=== PATIENT | female | born 1980 | race Caucasian/White ===

== ENCOUNTER 2023-02-05 08:21 | Outpatient (CLI) | payer BC, SELFPAY | END 2023-02-05 08:22 | disposition home or self-care (01) | PROVIDERS: PCP Physician Assistant Medical; Referring Provider Physician Assistant Medical; Visit Provider Physician Assistant Medical | DX: E78.1 Pure hyperglyceridemia (principal); I10 Essential (primary) hypertension; R73.03 Prediabetes; R73.9 Hyperglycemia, unspecified; E11.65 Type 2 diabetes mellitus with hyperglycemia | CPT/HCPCS: 80053; 80061; 84443 ==

== ENCOUNTER 2024-03-02 09:00 | Outpatient (CLI) | payer BC, SELFPAY ==
--- OUTSIDE RECORDS SUMMARY | 2024-03-03 08:30 | XMS_ITS | Referral Summary ---
Author Organization [facility] Address [address] [place] [address]. [place] [address] Care Team Providers Care Petroleum Inspector Supervisor Name Role Phone Karen Armendariz PA-C Primary Care Provider [phone] Allergies No known active allergies Medications Medication Sig Dispensed Refills Start Date End Date Status Vit-Fe Fumarate-FA ( MULTIVITAMIN PLUS IRON) 27-0.8 MG TABSIndications:Pregna ncy Take 1 tablet by mouth daily. Indications: Active loratadine (CLARITIN) 10 MG tablet Take 10 mg by mouth as needed. Active Active Problems Problem Noted Date Diagnosed Date Encounter for supervision of normal in multigravida 02/08/2013 Overview: Diagnosis updated by automated process. Provider to review and confirm. Social History Tobacco Use Types Packs/Day Years Used Date Smoking Tobacco: Never Alcohol Use Standard Drinks/Week Comments No 0 (1 standard drink = 0.6 oz pur e alcohol) Adolescent Education Answer Date Record ed Getting School Help Needed Not on file 02/08 Sex and Gender Information Value Date Recorded Sex Assigned at Female 01/17/2020 3:43 PM CDT Gender Identity Female 01/17/2020 3:43 PM CDT Sexual Orientation Straight 01/17/2020 3: 43 PM CDT Last Filed Vital Signs Vital Sign Reading Time Taken Comments Blood Pressure 132/71 02/10/2013 8:37 AM CDT Pulse 86 02/10/2013 8:37 AM CDT Temperature 36.8 ??C (98.3 ??F) 02/10/2013 8:37 AM CD T Respiratory Rate 18 02/10/2013 8:37 AM CDT Oxygen Saturation - - Inhaled Oxygen Concentration - - Weight 97.5 kg (215 lb) 02/08/2013 8:02 AM CDT Height 162.6 cm (5' 4) 02/08/2013 8:02 AM CDT Body Mass Index 36.9 02/08/2013 8:02 AM CDT Plan of Treatment Not on file Care Teams Petroleum Inspector Supervisor Relationship Specialty Start Date End Date Karen Armendariz PA-C [facility] [address] [facility] [address] PCP - General 09/13/19
== END 2024-03-02 09:01 | disposition home or self-care (01) ==
LOC: NFLDREF 03-03 08:28
PROVIDERS: PCP Physician Assistant Medical; Referring Provider Physician Assistant Medical; Visit Provider Physician Assistant Medical
DX: Z00.00 Encounter for general adult medical examination without abnormal findings (principal); R73.03 Prediabetes; I10 Essential (primary) hypertension; E11.9 Type 2 diabetes mellitus without complications; E78.1 Pure hyperglyceridemia
CPT/HCPCS: 80048; 80061

== ENCOUNTER 2024-03-19 13:58 | Outpatient (CLI) | payer BC, SELFPAY ==
--- OUTSIDE RECORDS SUMMARY | 2024-03-21 05:58 | XMS_ITS | Clinical Summary ---
Author Organization [facility] Address [address] [place] [address]. [place] [address] Care Team Providers Care Interactive Media Marketing Specialist Name Role Phone Karen Armendariz PA-C Primary Care Provider [phone] Allergies No known active allergies Medications Medication [...] of Treatment Not on file Care Teams Interactive Media Marketing Specialist Relationship Specialty Start Date End Date Karen Armendariz PA-C [facility] [address] [facility] [place] [address] PCP - General 09/13/19
--- OUTSIDE RECORDS SUMMARY | 2024-03-21 05:58 | XMS_ITS | Referral Summary ---
Author Organization [facility] Address [address] [place] [address]. [place] [address] Care Team Providers Care Workforce Management Coordinator Name Role Phone Karen Armendariz PA-C Primary Care Provider [phone] Allergies No known active allergies Medications Medication [...] of Treatment Not on file Care Teams Workforce Management Coordinator Relationship Specialty Start Date End Date Karen Armendariz PA-C [facility] [address] [place] [address] PCP - General 09/13/19
--- OUTSIDE RECORDS SUMMARY | 2024-03-21 05:58 | XMS_ITS | Data Portability ---
Author Organization [facility]Y - [employer], [id number] Address [address] [place] [address] Assessment Encounter Date Assessment Date Assessment LastModified by Organization Details LastModified Time 05/18/2021 05/18/2021 I spent a total of 25 minutes providing care for this patient including: preparing to see the patient, obtaining a medical history, completing documentation of visit information and plans in the EMR, counseling the patient and/or caregiver regarding her diagnosis, treatment options and follow up plans [email or web address] Not available 05/22/2021 10:28:25 Plan of Treatment Reminders Order Date Submit Date Provider Last Modified By Organization Details Last Modified Time Details Appointments None recorded. Lab hemoglobin (Hb), fingerstick , blood 2020 021 [email or web address] [facility] , [address] [place] [address], [address], [place], [address], 1 12:52:14 Pap test, slide(s), cervical [address] [facility], [address] [place] [address], [address], [place], [address], 3 07:31:32 Referral None recorded. Procedures None recorded. Surgeries None recorded. Imaging None recorded. Medication Orders Altavera (28) 0.15 mg-0.03 mg tablet 2020 021 ameschshantal [facility] [id number] [employer], [address] [place], [address], 1 10:19:44 Lidia 0.35 mg tablet 2020 021 [facility] [address] [facility] [employer], [address] [place], [address], 1 10:20:08 norethindro ne (contracept misha) 0.35 mg tablet [address] [facility], [address] [place], [place], [id number], 2 11:41:45 Lidia 0.35 mg tablet 2022 023 [id number], [address], [place], [address], 3 11:39:40 Patient TargetsNo targets recorded. Patient Instructions Encounter Date Encounter Id Patient Instructions Last Modified By Organization Details Last Modified Time 01/31/2021 [id number] - Encouraged breast self-awareness and monthly breast exams. - Recommend mammogram annually starting at age 40. - Encouraged regular exercise. - Discussed calcium, vitamin D, and weight bearing exercise for bone health. - Recommend colonoscopy starting at age 45. - Encouraged patient to establish care with a PCP to manage non-HEAD FILTER PRESS TENDER concerns if she does not already have one. - Reviewed current cervical cancer screening guidelines. - Discussed common perimenopausal changes including vaginal dryness, hot flashes, night sweats, mood changes, and weight changes. Discussed when treatment is needed. - Counseling on use of estrogen containing contraceptives provided, including the 08/999 risk of DVT or stroke. This may be higher in smokers. - Counseling on IUDs provided. - Counseling on different control methods provided. [email or web address] Not available 01/31/2021 14:06:14 04/12/2022 [id number] - Encouraged breast self-awareness and monthly breast exams. - Recommend mammogram annually starting at age 40. - Encouraged regular exercise. - Discussed calcium, vitamin D, and weight bearing exercise for bone health. - Recommend colonoscopy starting at age 45. - PCP to manage non-HEAD FILTER PRESS TENDER concerns - Reviewed current cervical cancer screening guidelines. - Discussed common perimenopausal changes including vaginal dryness, hot flashes, night sweats, mood changes, and weight changes. Discussed when treatment is needed. [email or web address] Not available 04/12/2022 12:41:27 07/08/2023 [id number] - Encouraged breast self-awareness and recommend yearly mammogram. - Discussed appropriate breast cancer screening and mammogram intervals. - Counseled on perimenopause signs/symptoms. - Encouraged weight loss-action plan. -follow up in 1 year, sooner as needed [email or web address] Not available 07/08/2023 12:02:25 Reason for Referral None Reported. Results Created Date Observation Date Name Description Value Unit Range Abnormal Flag LastModifiedBy Organization Detail LastModifiedTime 01/31/2021 hemog lobin (Hb), finge rstic k, blood fingerstick hemoglobin 12.2 g/dL 12.0-1 5.0 Not Available [id number] [facility] [address] [facility] [address], [place], [address], 01/31/2021 10:58:32 07/08/20 23 07/08/2023 HPV HIGH RISK TYPES DNA CERVI ANUPAM other HR HPV Negati ve negati ve Not Available [address], [place], [address], 07/14/2023 07:31:22 07/08/20 23 07/08/2023 HPV HIGH RISK TYPES DNA CERVI ANUPAM HPV16 DNA Negati ve negati ve Not Available [address], [place], [address], 07/14/2023 07:31:22 07/08/20 23 07/08/2023 HPV HIGH RISK TYPES DNA CERVI ANUPAM HPV18 DNA Negati ve negati ve Not Available [address], [place], [address], 07/14/2023 07:31:22 07/08/20 23 07/08/2023 HPV HIGH RISK TYPES DNA CERVI ANUPAM final diagnosis See note below Not Available [address], [place], [address], 07/14/2023 07:31:22 07/08/20 23 07/08/2023 GYNEC OLOGI C CYTOL OGY (PAP SMEAR ) gynecologic cytology SEE RESULT S BELOW Not Available [facility] [address] [facility] [address], [place], [address], 07/14/2023 07:31:32 04/24/20 22 12/05/2020 MAMMO , scree venkat, tomos ynthe sis, bilat eral, w/ CAD No observ ation record ed. [email or web address] [place] [address] Radiology Department [address] [place], [address], 04/25/2022 09:47:14 04/26/20 22 04/26/2022 MAMMO , scree venkat, tomos ynthe sis, bilat eral No observ ation record ed. [facility] [address] [address], [place], [address], 04/26/2022 14:15:37 04/26/2004/26/2022 lay lette r No observ ation record ed. [facility] [address], [place], [address], 04/28/2022 20:29:25 07/09/20 23 07/09/2023 lay lette r No observ ation record ed. [facility], [place], [address], 07/09/2023 17:36:35 07/09/20 23 07/09/2023 MAMMO , scree venkat, tomos ynthe sis, bilat eral No observ ation record ed. [facility] Center[facility]q997_uhwnxeb[address] [place], [address], 07/09/2023 14:32:57 Result Notes None recorded. Problems No Known Problems Procedures Surgical History Date Name Laterality Status Provider Name and Address Organization Details Recorded Time 07/08/20 Date of Last Pap Smear completed Nell teran [place] - [facility] [employer] 07/14/2023 17:18:38 07/08/20 Date of Last Mammogram completed JUDY De Jesus - [employer] 07/09/2023 14:33:16 Insert intrauterine device completed Not Available [facility] 03/13/2020 01:04:40 Remove intrauterine device completed Not Available [facility] 03/13/2020 01:04:40 Imaging Results Imaging Date Name Status LastModified by Organiz ation Details LastModified Time 12/05/2020 MAMMO, screening, tomosynthesis, bilateral, w/ CAD completed [address] Radiology Department [address] [place], [address], 04/25/2022 09:47:14 04/26/2022 MAMMO, screening, tomosynthesis, bilateral completed [email or web address] [id number][address] [address], [place], [address], 04/26/2022 14:15:37 04/26/2022 lay letter completed [facility] [id number] e_b [address] [address], [place], [address], 04/28/2022 20:29:25 07/09/2023 lay letter completed [facility] [id number] e_b [address] [address], [place], [address], 07/09/2023 17:36:35 07/09/2023 MAMMO, screening, tomosynthesis, bilateral completed [email or web address] [id number]_k [address], [place], [address], 07/09/2023 14:32:57 Procedure Notes None recorded. Medical Equipment None Reported. Allergies No known drug allergies Medications Name Sig Start Date Stop Date Status Note LastModified by Organization Details LastModified Time losartan 50 mg tablet TAKE 1 TABLET BY MOUTH DAILY active Not Available Not Available No t Available lisinopril 5 mg tablet TAKE 1 TABLET BY MOUTH DAILY 04/12 completed Not Available Not Available Not Available fenofibrate nanocrystalli zed 145 mg tablet TAKE 1 TABLET BY MOUTH EVERY DAY active Not Available Not Available No t Available Marjorie 0.35 mg tablet Take 1 tablet every day by oral route. active Not Available Not Available No t Available Altavera (28) 0.15 mg-0.03 mg tablet TAKE 1 TABLET BY MOUTH EVERY DAY 05/22 completed Not Available Not Available Not Available Vitals Date Recorded Body height Body mass index (BMI) Body weight Systolic blood pressure Diastolic blood pressure Systolic blood pressure Diastolic blood pressure Provider Name and Address Organization Details Last Updated DateTime 1 162.56 cm 38.3 kg/m2 910986. 1 g 148 mm[Hg] 92 mm[Hg] 150 mm[Hg] 92 mm[Hg] Federica Alvarado (TERMED) [facility] [employer] 1 09:48:43 Date Recorded Body height Body mass index (BMI) Body weight Systolic blood pressure Diastolic blood pressure Provider Name and Address Organization Details Last Updated DateTime 04/12/2022 162.56 cm 38.5 kg/m2 364546.4 1 g 126 mm[Hg] 74 mm[Hg] Jazmin Bolden (TERMED) [facility] [employer] 2 11:29:28 Date Recorded Body weight Body mass index (BMI) Body height Systolic blood pressure Diastolic blood pressure Systolic blood pressure Diastolic blood pressure Provider Name and Address Organization Details Last Updated DateTime 3 343080. 02 g 40 kg/m2 162.56 cm 160 mm[Hg] 90 mm[Hg] 170 mm[Hg] 90 mm[Hg] An Moses [facility] [employer] 3 11:27:00 Date Recorded Body weight Body mass index (BMI) Body height Systolic blood pressure Diastolic blood pressure Provider Name and Address Organization Details Last Updated DateTime 01/31/2021 95073.95 g 37.1 kg/m2 162.56 cm 116 mm[Hg] 62 mm[Hg] Jessica Mcclain (TERMED) JUDY Slaughter [employer] 10:56:31 Social History Question Answer Notes LastModified by BIXI Details LastModified Time Tobacco Smoking Status Never Smoker Tobacco *Status: Never *Note: 06/23/2019 - Not Available [facility] 03/13/2020 13:21:47 What Is Your Level Of Alcohol Consumption? Occasional Alcohol *Status: Current Some Day *Qty: 2dr/mo *Note: Information not available 03/13/2020 What Is Your Level Of Caffeine Consumption? 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 Heavy Heavy Amount of Exercise (4 or more times weekly) Information not available 03/13/2020 Mental Status None recorded. Family History Relationship Description Onset Age of this Age Resolved Age Notes Father Family history of malignant neoplasm of gastrointestinal tract Cancer Colon Father Hyperlipidemia High Cholesterol / Hyperlipidemia Brother Hyperlipidemia High Cholesterol / Hyperlipidemia Medical History Condition Response Cardiology- High Cholesterol N Cardiology- High Blood Pressure N ID-Other N Gynecological History Statement/Question Response History of Abnormal PAP N HPV Test Negative Date of Last Mammogram 07/08/2023 Date of LMP 03/21/2022 History of Cervical Dysplasia N 4 Date of Last Diabetes Screening Sexually Active Y 23 History of Sexually Transmitted Infectio n N HPV Vaccine Complete Diethylstilbestrol (MINERVA) exp osed daughters of women who took MINERVA during ? N Current Control Method Vasectomy Date of Last Pap Smear 07/08/2023 Date of Last Cholesterol Screening Obstetrics History GPAL:G 6 P 4 0 2 4 Type Value Multiple Births 0 Full Term 4 Induced 0 Spontaneous 2 Premature 0 Living 4 Ectopics 0 Total 6 Immunizations Vaccine Type Date Status Provider Name and Address Organization Details Recorded Time Tdap 11/18/2012 completed Not Available [facility] 01:09:57 unknown 08/08/2009 completed An Leidner null, [place] - [facility] [employer] 07/08/2023 11:23:19 unknown 04/18/2010 completed [place] Le[place] [facility] [employer] 07/08/2023 11:23:19 unknown 04/18/2010 completed [place] [facility] [employer] 07/08/2023 11:23:19 Influenza, MDCK, quadrivalent, PF 05/01/2017 completed [place] [facility] [employer] 07/08/2023 11:23:19 Influenza, MDCK, quadrivalent, PF 05/30/2020 completed [place] [facility] [employer] 07/08/2023 11:23:19 Influenza, MDCK, quadrivalent, PF 06/08/2019 completed [place] [facility] [employer] 07/08/2023 11:23:19 Influenza, MDCK, quadrivalent, PF 07/10/2021 completed [place] [facility] [employer] 07/08/2023 11:23:19 MMR 02/02/1991 completed An [place] [facility] [employer] 07/08/2023 11:23:19 COVID-19, mRNA, LNP-S, PF, 30 mcg/0.3 mL dose 11/10/2020 completed [place] [facility] [employer] 07/08/2023 11:23:19 COVID-19, mRNA, LNP-S, PF, 30 mcg/0.3 mL dose 12/01/2020 completed [place] [facility] [employer] 07/08/2023 11:23:19 COVID-19, mRNA, LNP-S, PF, 30 mcg/0.3 mL dose 07/31/2021 completed [place] [facility] [employer] 07/08/2023 11:23:19 influenza, unspecified formulation 07/31/2005 completed [place] [facility] [employer] 07/08/2023 11:23:19 Tdap 03/31/2006 completed [place] [facility] [employer] 07/08/2023 11:23:19 Novel [id number], all formulations 08/08/2009 completed [place] [facility] [employer] 07/08/2023 11:23:19 DTP 12/04/1995 completed [place] [facility] [employer] [employer] 07/08/2023 11:23:19 DTP 03/04/1984 completed [place] [facility] [employer] 07/08/2023 11:23:19 OPV 1978 completed [place] [facility] [employer] 07/08/2023 11:23:19 polio, unspecified formulation 1978 completed [place] [facility] [employer] [employer] 07/08/2023 11:23:19 Hep B, adult 10/01/1999 completed [place] [facility] [employer] 07/08/2023 11:23:19 Hep B, adult 03/29/1999 completed [place] [facility] [employer] 07/08/2023 11:23:19 Hep B, adult 06/12/1999 completed [place] [facility] [employer] [employer] 07/08/2023 11:23:19 Hep A, adult 03/31/2006 completed [place] [facility] [employer] [employer] 07/08/2023 11:23:19 Past Encounters Encounter ID Performer Location Encounter Start Date Encounter Closed Date Diagnosis/Indication Diagnosis SNOMED-CT Code [id number] ANIRUDH GILES, GIRISH [id number] [facility] [address] [facility] [address], [address] [place] [address] 01/31/2021 10:47:01 01/31/2021 14:17:23 Gynecologic examination 91968964 Obesity 276152845 Contracept ion care management 251042353 Essential hypertension 21206798 [id number] BRENDAN FELIZ MD [id number] [facility] [address] [facility], [address] [place] [address] 05/18/2021 09:37:00 05/22/2021 13:09:51 Contraception care management [id number] DEVAN GARCIA [facility] [id number] [facility] [address] [facility], [address] [place] [address] 04/12/2022 11:15:44 04/12/2022 13:29:40 Gynecologic examination [id number] DEVAN GARCIA CARY [id number] [facility] [address] [facility], [address] [address] 07/08/2023 11:18:38 07/08/2023 12:02:55 Contraception care management 935899436 Gynecologi c examination 06089006 Increased blood pressure 29583051 Increased body mass index 46031128 Health Concerns Section Related Observation LastModified by Organization Detai ls LastModified Time None Recorded Concern Status LastModified by Organization Details LastModified Time None Recorded Advance Directives Directive None Recorded Payers Encounter Date Sequence Insurance Name Policy Number Policy Harris Covered Member ID Harris Member ID Guarantor Name 01/31/2021 1 [employer] (PPO) [id number] Jose Gomez [id number] Aida Gomez 05/18/2021 1 [employer] (PPO) [id number] Jsoe Gomez [id number] Aida Gomez 04/12/2022 1 [place] [id number] Jose Gomez [id number] Aida Gomez 07/08/2023 1 [place] [id number] Jose Gomez [id number] Aida Gomez Notes Date Note Type Note Provider Name and Address Organization Details Recorded Time 01/31/2021 text/html HPI Notes: Lacy latham Premenopausal ([facility]) Reported by patient. Patient Relationship To Practice: established patient Current Medical History: active medical problems stable Relevant Family History: no family history of breast cancer; no family history of ovarian cancer; no family history of uterine cancer; no family history of colon cancer; no family history of blood clots/DVT Menstrual History: Frequency of Menses: monthly; Duration of Flow: 5 days; Quantity of Flow: moderate Contraceptive Method: Current Method Used: vasectomy; satisfied; uses OCP for cycle control Sexually Active: Yes: spouse STI Screen: declines Health/Prevention: Exercise: no; Multivitamins: yes; Adequate Calcium Intake: no; Breast Self Exam: yes; Mental Health Screen: normal Mammogram: up-to-date; December 2020 Pap Smear +/- HPV Cotesting: up-to-date; June 2019 Thyroid/Lipid Screening: up-to-date; does w/ PCP Colonoscopy: not applicable Patient has: Primary Care Physician: yes Aida reports use of OCPs for cycle control, has had vasectomy. Is on lisinopril 5mg for blood pressure management. GIRISH VELASQUEZ [id number], [place], [address], [facility] - [facility] [employer] 01/31/2021 14:10:23 05/18/2021 text/html HPI Notes: Chasidy skelton presents today to discuss period control. She has been on OCPs for control of her heavy periods ( has had vasectomy). She was recently recommended to stop OCPs due to HTN. Discussed risks of OCPs with HTN - as well as BP today of 150/92. Patient reports her BP is usually better [place] [address] [address], [place], [address], [facility] [employer] 05/22/2021 10:31:07 04/12/2022 text/html HPI Notes: Lacy latham Premenopausal ([facility]) Reported by patient. Patient Relationship To Practice: established patient Current Medical History: active medical problems stable Relevant Family History: no family history of breast cancer; no family history of ovarian cancer; no family history of uterine cancer; no family history of colon cancer; no family history of blood clots/DVT Menstrual History: Frequency of Menses: monthly; Duration of Flow: 5 days; Quantity of Flow: moderate Contraceptive Method: satisfied: vasectomy; uses POPs for cycle control Sexually Active: Yes: spouse STI Screen: declines Health/Prevention: Exercise: no; Multivitamins: yes; Adequate Calcium Intake: no; Breast Self Exam: yes; Mental Health Screen: normal Mammogram: up-to-date; will do today in the office Pap Smear +/- HPV Cotesting: up-to-date; June 2019 Thyroid/Lipid Screening: up-to-date; does w/ PCP Colonoscopy: not applicable Patient has: Primary Care Physician: yes Notes: Kids are doing well, one in high school, 2 in middle school and one in elementary. DUONG COLON [address] [facility], [place], [address], [facility] [employer] 04/12/2022 12:41:42 07/08/2023 text/html HPI Notes: Lacy Michael () Reported by patient. Patient Relationship To Practice: established patient Current Medical History: active medical problems stable Relevant Family History: no family history of breast cancer; no family history of ovarian cancer; no family history of uterine cancer; no family history of colon cancer; no family history of blood clots/DVT Menstrual History: Frequency of Menses: monthly; Duration of Flow: 5 days; Quantity of Flow: moderate Contraceptive Method: satisfied: vasectomy; uses POPs for cycle control Sexually Active: Yes: spouse STI Screen: declines Health/Prevention: Exercise: no; Multivitamins: yes; Adequate Calcium Intake: no; Breast Self Exam: yes; Mental Health Screen: normal Mammogram: up-to-date; will do today in the office Pap Smear +/- HPV Cotesting: due; June 2019 Thyroid/Lipid Screening: up-to-date; does w/ PCP Colonoscopy: not applicable Patient has: Primary Care Physician: yes Notes: Kids are doing well, two in high school, 1 in middle school and one in elementary. 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 DUONG COLON [address] [address], [place], [address], [place] - [facility] [employer] 07/08/2023 12:02:28 OBGyn Episode Ob Episode Information Episode Created Date Number of Fetuses Patient Bloodtype Patient rh Status Prepregnancy Weight lbs Domestic Partner Domestic Partner Phone Father Name Site Inspector Status 05/22/20 21 1 CLOSED Fetus Data First Name Last Name Admitted to NICU Weight (g) Sex Living Outcome Pediatric Complications Fetus ID Race Codes Race Delivery Type 4053.75 1704 F Full Term [id number] Michael Calculation Initial Michael Date Initial Exam Date Initial Exam Provider Initial Ultrasound Date Last Menstrual Period Date Ultra Sound Weeks Gestation 0 Eighteen To Twenty Week Michael Update Ultra Sound Date Fundal Height At Umbil Quickening Date Ultra Sound Latest Weeks Gestation Final Michael Confirmed By Final Michael Confirmed Date Final Michael Date Ultra Sound Latest Days Gestation 0 0 Menstrual History Last Menstrual Date Menses Monthly On Bcp Conception Prior Menses Frequency Hcg Plus Date Menarche Onset Age Delivery Information Delivery Date Delivery Type Labor Anesthesia Weeks Gestation Incision Type Labor Labor Length Hrs Delivered By Post Complications Tubal Sterilization Discharge Date Comments 7 Regional-Ep idural 39 false [place] Discharge Information Feeding Method Contraceptive Method Maternal HG B and HCT Levels Ob Episode Information Episode Created Date Number of Fetuses Patient Bloodtype Patient rh Status Prepregnancy Weight lbs Domestic Partner Domestic Partner Phone Father Name Site Inspector Status 05/22/20 21 1 CLOSED Fetus Data First Name Last Name Admitted to NICU Weight (g) Sex Living Outcome Pediatric Complications Fetus ID Race Codes Race Delivery Type 4649.31 8 M Full Term [id number] Michael Calculation Initial Michael Date Initial Exam Date Initial Exam Provider Initial Ultrasound Date Last Menstrual Period Date Ultra Sound Weeks Gestation 0 Eighteen To Twenty Week Michael Update Ultra Sound Date Fundal Height At Umbil Quickening Date Ultra Sound Latest Weeks Gestation Final Michael Confirmed By Final Michael Confirmed Date Final Michael Date Ultra Sound Latest Days Gestation 0 0 Menstrual History Last Menstrual Date Menses Monthly On Bcp Conception Prior Menses Frequency Hcg Plus Date Menarche Onset Age Delivery Information Delivery Date Delivery Type Labor Anesthesia Weeks Gestation Incision Type Labor Labor Length Hrs Delivered By Post Complications Tubal Sterilization Discharge Date Comments 3 Regional-Ep idural 40 false [place] Discharge Information Feeding Method Contraceptive Method Maternal HG B and HCT Levels Ob Episode Information Episode Created Date Number of Fetuses Patient Bloodtype Patient rh Status Prepregnancy Weight lbs Domestic Partner Domestic Partner Phone Father Name Site Inspector Status 05/22/20 21 1 CLOSED Fetus Data First Name Last Name Admitted to NICU Weight (g) Sex Living Outcome Pediatric Complications Fetus ID Race Codes Race Delivery Type 3855.53 2 F Full Term [id number] Michael Calculation Initial Michael Date Initial Exam Date Initial Exam Provider Initial Ultrasound Date Last Menstrual Period Date Ultra Sound Weeks Gestation 0 Eighteen To Twenty Week Michael Update Ultra Sound Date Fundal Height At Umbil Quickening Date Ultra Sound Latest Weeks Gestation Final Michael Confirmed By Final Michael Confirmed Date Final Michael Date Ultra Sound Latest Days Gestation 0 0 Menstrual History Last Menstrual Date Menses Monthly On Bcp Conception Prior Menses Frequency Hcg Plus Date Menarche Onset Age Delivery Information Delivery Date Delivery Type Labor Anesthesia Weeks Gestation Incision Type Labor Labor Length Hrs Delivered By Post Complications Tubal Sterilization Discharge Date Comments 0 Regional-Ep idural 38 false Hong Discharge Information Feeding Method Contraceptive Method Maternal HG B and HCT Levels Ob Episode Information Episode Created Date Number of Fetuses Patient Bloodtype Patient rh Status Prepregnancy Weight lbs Domestic Partner Domestic Partner Phone Father Name Site Inspector Status 05/22/20 21 1 CLOSED Fetus Data First Name Last Name Admitted to NICU Weight (g) Sex Living Outcome Pediatric Complications Fetus ID Race Codes Race Delivery Type 3798.83 3 F Full Term [id number] Michael Calculation Initial Michael Date Initial Exam Date Initial Exam Provider Initial Ultrasound Date Last Menstrual Period Date Ultra Sound Weeks Gestation 0 Eighteen To Twenty Week Michael Update Ultra Sound Date Fundal Height At Umbil Quickening Date Ultra Sound Latest Weeks Gestation Final Michael Confirmed By Final Michael Confirmed Date Final Michael Date Ultra Sound Latest Days Gestation 0 0 Menstrual History Last Menstrual Date Menses Monthly On Bcp Conception Prior Menses Frequency Hcg Plus Date Menarche Onset Age Delivery Information Delivery Date Delivery Type Labor Anesthesia Weeks Gestation Incision Type Labor Labor Length Hrs Delivered By Post Complications Tubal Sterilization Discharge Date Comments 9 Regional-Ep idural 39 false PP endometri tis, Swigert Discharge Information Feeding Method Contraceptive Method Maternal HG B and HCT Levels
== END 2024-03-19 13:59 | disposition home or self-care (01) ==
LOC: NFLDREF 03-21 05:56
PROVIDERS: PCP Physician Assistant Medical; Referring Provider Physician Assistant Medical; Visit Provider Nurse Practitioner Family
DX: N30.90 Cystitis, unspecified without hematuria (principal)
CPT/HCPCS: 87086

== ENCOUNTER 2024-08-06 10:07 | Outpatient (CLI) | payer BC, SELFPAY ==
--- OUTSIDE RECORDS SUMMARY | 2024-08-05 16:32 | XMS_ITS | Referral Summary ---
Author Organization [facility] Address [address] [place] [address]. [place] [address] Care Team Providers Care Driller'S Assistant Name Role Phone Karen Armendariz PA-C Primary Care Provider [phone] Allergies No known active allergies Medications Vit-Fe Fumarate-FA ( MULTIVITAMIN PLUS IRON) 27-0.8 MG TABSIndications:P regnancy Take 1 tablet by mouth daily. Indications: Active loratadine (CLARITIN) 10 MG tablet Take 10 mg by mouth as needed. Active Active Problems Problem Noted Date Diagnosed Date Encounter for supervision of normal in multigravida 02/08/2013 Overview (06/05/2015): Diagnosis updated by automated process. Provider to review and confirm. 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 Gender Identity Female 01/17/2020 3:43 PM CDT Sexual Orientation Straight 01/17/2020 3: 43 PM CDT Last Filed Vital Signs Vital Sign Reading Time Taken Comments Blood Pressure 132/71 02/10/2013 8:37 AM CDT Pulse 86 02/10/2013 8:37 AM CDT Temperature 36.8 C (98.3 F) 02/10/2013 8:37 AM CDT Respiratory Rate 18 02/10/2013 8:37 AM CDT Oxygen Saturation - - Inhaled Oxygen Concentration - - Weight 97.5 kg (215 lb) 02/08/2013 8:02 AM CDT Height 162.6 cm (5' 4) 02/08/2013 8:02 AM CDT Body Mass Index 36.9 02/08/2013 8:02 AM CDT Plan of Treatment Not on file Insurance [facility] Care Teams Driller'S Assistant Relationship Specialty Start Date End Date Karen Armendariz PA-C [facility] [address] [place] [address] PCP - General 09/13/19
--- OUTSIDE RECORDS SUMMARY | 2024-08-05 16:32 | XMS_ITS | Clinical Summary ---
Author Organization [facility] Address [address] [place] 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
--- NOTE | 2024-08-06 10:15 | CRLHL7_ITS ---
For Patients: As a result of the Century Cures Act, medical imaging exams and procedure reports are released immediately into your electronic medical record. You may view this report before your referring provider. If you have questions, please contact your health care provider. BILATERAL SCREENING MAMMOGRAM WITH COMPUTER-AIDED DETECTION AND TOMOSYNTHESIS TECHNIQUE: CC and MLO views were obtained. These mammographic images have been obtained using full-field digital technique. These mammographic images were interpreted with the benefit of computer-aided detection. Breast Tomosynthesis was used in this interpretation. COMPARISON FILM: 12/05/20, 09/13/19. FINDINGS: There are scattered areas of fibroglandular density. IMPRESSION: There is no radiographic evidence for malignancy. ASSESSMENT: BI-RADS Category 1: Negative RECOMMENDATION: Routine screening mammogram in 1 year. A lay language report of this examination will be provided to the patient. Colton Reeves M.D. Diagnostic Radiologist [email or web address] SP/Dictated by: Colton Reeves MD @ 08/09/2024 10:51:00 AM (Electronically Signed)
== END 2024-08-06 10:08 | disposition home or self-care (01) ==
LOC: MAMMO 10:09
PROVIDERS: PCP Physician Assistant Medical; Visit Provider Physician Assistant Medical
DX: Z12.31 Encounter for screening mammogram for malignant neoplasm of breast (principal)
CPT/HCPCS: 77063; 77067

== ENCOUNTER 2025-04-06 08:36 | Outpatient (CLI) | payer BC, SELFPAY | END 2025-04-06 08:37 | disposition home or self-care (01) | LOC: NFLDREF 04-07 10:26 | PROVIDERS: PCP Physician Assistant Medical; Referring Provider Physician Assistant Medical; Visit Provider Physician Assistant Medical | DX: E11.9 Type 2 diabetes mellitus without complications (principal); E78.1 Pure hyperglyceridemia; I10 Essential (primary) hypertension | CPT/HCPCS: 80053; 80061; 82043; 82570; 84443 ==